=== PATIENT | female | born 1965 | race Caucasian/White ===

== ENCOUNTER 2019-04-24 13:31 | Emergency (ER) | payer SELFPAY ==
[2019-04-24] MEDS ORDERED: 0.9 % SODIUM CHLORIDE 1,000 ML BAG IV ONE (13:51)
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
[2019-04-24 14:07] LABS: ABSOLUTE NEUTROPHIL COUNT 6.09; BASO % 0.5 % (0-6); EOS % 1.7 % (0-6); GRAN % 69.8 % (47-80); HEMOGLOBIN 12.5 gm/dl (11.6-16.0); LYMPH % 23.1 % (16-45); MEAN CELL VOLUME 88.1 fl (81-97); MEAN CORPUSCULAR HEMOGLOBIN 27.5 pg (27-33); MEAN CORPUSCULAR HGB CONC 31.3 g/dl (32-36); MEAN PLATELET VOLUME 8.9 fl (7.4-10.4); MONO % 4.9 % (0-9); PLATELET COUNT 353 K/uL (130-400); RED BLOOD COUNT 4.54 M/uL (3.80-5.40); RED CELL DISTRIBUTION WIDTH 13.3 % (11.5-14.5); WHITE BLOOD COUNT W/O DIFF 8.7 K/uL (4.2-12.2)
[2019-04-24 14:21] LABS: PARTIAL THROMBOPLASTIN TIME 27.4 SECONDS (24.5-39.1); PROTHROMBIN TIME (PATIENT) 10.5 SECONDS (9.5-12.1)
[2019-04-24 14:30] LABS: BLOOD UREA NITROGEN 19 mg/dL (6-20); CREATININE 0.6 mg/dL (0.5-0.9); EST GLOMERULAR FILTRATION RATE > 60 mL/min; LIPASE 17 U/L (13-60); TOTAL PROTEIN 7.3 g/dL (6.6-8.7)
[2019-04-24 14:32] LABS: GLUCOSE,RANDOM 149 mg/dL (74-109)
[2019-04-24 14:35] LABS: ALB/GLOB RATIO 1.6 (1.1-1.8); ALBUMIN 4.5 g/dL (4.0-5.0); ALKALINE PHOSPHATASE 95 U/L (35-104); ALT/SGPT 25 U/L (<33); AST/SGOT 19 U/L (10.0-35.0)
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
[2019-04-24] MEDS ORDERED: IBUPROFEN 600 MG TABLET PO ONE (15:28)
== END 2019-04-24 15:49 | disposition home or self-care (01) ==
LOC: ER 13:31
DX: S00.03XA Contusion of scalp, initial encounter (principal); M54.5 Low back pain; M54.2 Cervicalgia; R07.89 Other chest pain; R11.0 Nausea; V43.52XA Car driver injured in collision with other type car in traffic accident, initial encounter
CPT/HCPCS: 70450; 71250; 72125; 74176; 80053; 83690; 85025; 85610; 85730; 99285